=== PATIENT | female | born 1995 | race Caucasian/White ===

== ENCOUNTER 2024-08-21 17:32 | Emergency (ER) | payer OTHER, SELFPAY ==
[2024-08-21 17:35] VITALS: BP 133/92
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
[2024-08-21] MEDS: MOTRIN 600 MG PO (19:48)
[2024-08-21 20:00] VITALS: BP 118/78
== END 2024-08-21 20:49 | disposition home or self-care (01) ==
LOC: EMR 17:32
PROVIDERS: EMERGENCY PHYSICIAN Emergency Medicine
DX: S29.012A Strain of muscle and tendon of back wall of thorax, initial encounter (principal); V89.2XXA Person injured in unspecified motor-vehicle accident, traffic, initial encounter; Y92.410 Unspecified street and highway as the place of occurrence of the external cause
CPT/HCPCS: 99283; 73010